=== PATIENT | female | born 1940 | race Caucasian/White ===

== ENCOUNTER 2020-11-04 21:15 | Emergency (ER) | payer MEDICARE, OTHER ==
[~2020-11-04] VITALS: Ht 154.9 cm; Wt 72.6 kg
--- NOTE | 2020-11-04 21:20 | NUR ---
ACCUCHECK = 49 ORANGE JUICE AND SUGAR GIVEN.
[2020-11-04 21:23] VITALS: BP 148/82
--- NOTE | 2020-11-04 22:04 | NUR ---
TO ER BED 4
--- NOTE | 2020-11-04 22:07 | NUR ---
SEE PATIENT ASSESSMENT FOR MORE INFORMATION. PATIENT LAYING IN BED LOCKED IN LOWEST POSITION, X2 SIDERAIL UP FOR PATIENT SAFETY. AOX4, GCS 15, BREATHING EVEN AND UNLABORED. NAD, NOTED. WILL CONTINUE TO MONITOR.
[2020-11-04 22:24] LABS: BASOPHILS # (AUTO) 0.1 K/uL (0.00-0.22); BASOPHILS % (AUTO) 0.5 % (0.0-2.0); EOSINOPHILS # (AUTO) 0.1 K/uL (0-0.4); HEMATOCRIT 44.6 % (36-48); HEMOGLOBIN 14.5 g/dL (12.0-16.0); LYMPHOCYTES # (AUTO) 2.8 K/uL (2.5-16.5); LYMPHOCYTES % (AUTO) 19.7 % (20.5-51.1); MEAN CORPUSCULAR HEMOGLOBIN 28 pg (27-31); MEAN CORPUSCULAR HGB CONC 33 g/dL (33-37); MEAN CORPUSCULAR VOLUME 85.5 fL (80-94); MONOCYTES # (AUTO) 1.1 K/uL (0.8-1.0); MONOCYTES % (AUTO) 8.1 % (1.7-9.3); NEUTROPHILS % (AUTO) 70.7 % (42.2-75.2); PLATELET COUNT (AUTO) 330 K/uL (140-450); RED BLOOD CELL COUNT(AUTO) 5.22 MIL/uL (4.20-5.40); RED CELL DISTRIBUTION WIDTH 14.8 % (11.6-13.7); WHITE BLOOD COUNT (AUTO) 14.1 K/uL (4.8-10.8)
[2020-11-04 22:51] LABS: CARBON DIOXIDE 28.9 mmol/L (21-32); CHLORIDE 101 mmol/L (98-107); CREATININE 1.1 mg/dL (0.6-1.3); GLUCOSE 125 mg/dL (74-106); POTASSIUM 3.9 mmol/L (3.5-5.1); SODIUM SERUM 136 mmol/L (136-145); UREA NITROGEN, BLOOD 22 mg/dL (7-18)
[2020-11-04 23:17] LABS: PROTHROMBIN TIME 9.4 secs (10.8-13.4)
--- NOTE | 2020-11-04 23:42 | NUR ---
PT PLACED ON BED SANDS. FAMILY AT BEDSIDE.
[2020-11-05 01:12] VITALS: BP 151/78
--- NOTE | 2020-11-05 01:12 | NUR ---
Patient discharged with v/s stable. Written and verbal after care instructions given and explained. Patient verbalized understanding. Wheel Chair Assisted with steady gait. All questions addressed prior to discharge. Advised to follow up with PMD.
== END 2020-11-05 01:12 | disposition home or self-care (01) ==
LOC: MED 21:15
DX: E11.649 Type 2 diabetes mellitus with hypoglycemia without coma (principal)
CPT/HCPCS: 36415; 71045; 80048; 83036; 83735; 84484; 85025; 85610; 85730; 93005; 99285